=== PATIENT | male | born 1930 | race Caucasian/White ===

== ENCOUNTER 2021-06-11 15:51 | Emergency (ER) | payer MEDICARE ==
[~2021-06-11] VITALS: Ht 170.2 cm; Wt 103.2 kg
[2021-06-11 17:50] LABS: LYMPHOCYTES % (AUTO) 30.3 % (22.0-44.0); MONOCYTES # (AUTO) 0.9 K/uL (0.1-1.0); RED CELL DISTRIBUTION WIDTH 14.6 % (11.5-14.5)
[2021-06-11 17:55] LABS: EOSINOPHILS % (AUTO) 3.4 % (1.0-6.0); HEMATOCRIT 36.4 % (41-53); LYMPHOCYTES # (AUTO) 2.2 K/uL (1.0-4.8); MEAN CORPUSCULAR HEMOGLOBIN 29.7 pg (26.0-34.0); MEAN CORPUSCULAR HGB CONC 33.1 G/dL (31.0-37.0); MEAN CORPUSCULAR VOLUME 90 fL (80-100); MONOCYTES % (AUTO) 12.5 % (2.0-9.0); NEUTROPHILS # (AUTO) 3.8 K/uL (1.8-7.7); NEUTROPHILS % (AUTO) 52.8 % (40.0-70.0); PLATELET COUNT (AUTO) 196 K/uL (150-450); RED BLOOD CELL COUNT(AUTO) 4.06 MIL/uL (4.50-5.90)
[2021-06-11 17:56] VITALS: BP 198/88
[2021-06-11 17:57] LABS: CALCIUM, TOTAL 8.9 mg/dL (8.8-10.5); CREATININE 1.54 mg/dL (0.60-1.30); POTASSIUM 4.4 mmol/L (3.5-5.1)
[2021-06-11] MEDS ORDERED: TRI2515C TP (18:18)
[2021-06-11] MEDS ORDERED: BENZ-70 PO (18:18)
== END 2021-06-11 19:14 | disposition home or self-care (01) ==
LOC: EMS 16:18
DX: J40 Bronchitis, not specified as acute or chronic (principal); L40.9 Psoriasis, unspecified; Z90.89 Acquired absence of other organs
CPT/HCPCS: 71046; 80048; 85025; 99284; 36415-L1; 36415-TC